=== PATIENT | male | born 1975 | race Caucasian/White ===

== ENCOUNTER → 2020-04-23 | Outpatient (CLI) | payer MEDICAID, SELFPAY ==
--- NOTE | 2020-04-23 08:53 | US_ITS ---
STUDY: ABDOMINAL ULTRASOUND REASON FOR EXAM: Male, 44 years old. Hepatitis C. TECHNIQUE: Transabdominal ultrasound was performed with real-time and static moreland scale imaging. TECHNICAL QUALITY: Adequate. COMPARISON: None. FINDINGS: Liver: The liver measures 16.3 cm. There is normal echogenicity of the liver. The bile ducts are within normal limits. There is hepatic color flow. The direction of portal flow is hepatopetal. There is no demonstrated mass lesion. Gallbladder: Normal distended gallbladder. The gallbladder wall measures 2.1 mm. There is a negative sonographic Rausch''s sign. There is no pericholecystic fluid. There are no gallstones. Common Bile Duct (C.B.D.): The common bile duct measures 6.7 mm. Pancreas: Normal size of the head, body and tail of the pancreas. There is normal echogenicity of the pancreas. There is no demonstrated pancreatic mass or cyst. Spleen: Borderline splenomegaly. No focal mass. The spleen measures 12.2 cm. Right Kidney: Normal size of the right kidney. The right kidney measures 11.5 cm. Normal renal cortex. The right cortex measures 1.8 cm. There is a 1.2 cm exophytic cyst in the medial mid cortex. There is no right hydronephrosis. Left Kidney: Normal size of the left kidney. The left kidney measures 11.5 cm. Normal renal cortex. The left cortex measures 1.3 cm. There is no demonstrated renal mass or cyst. There is no left hydronephrosis. Aorta: No abdominal aortic aneurysm. I.V.C.: The IVC is patent. There is no ascites. US/Abdomen Complete IMPRESSION: 1. Borderline splenomegaly. 2. No other sonographic evidence of abdominal abnormality Electronically Signed: Scotty Dhillon DO at 17:53 EDT Tel [phone], Service support ,
[2020-04-23 09:54] LABS: Amphetamine Urine VISTA NEGATIVE (<1000 ng/mL); Barbiturate Urine VISTA NEGATIVE (< 200 ng/mL); Benzodiazepine Urine VISTA NEGATIVE (< 200 ng/mL); Cocaine Urine VISTA NEGATIVE (< 300 ng/mL); Ecstacy Urine VISTA NEGATIVE (< 500 ng/mL); Methadone Urine VISTA NEGATIVE (< 300 ng/mL); PCP Urine VISTA NEGATIVE (< 25 ng/mL); THC Urine VISTA NEGATIVE (< 50 ng/mL); Vista UDS pH Range 5
[2020-04-23 09:59] LABS: Absolute Lymphocyte Count 1.29 X10^3/uL (0.83-4.51); Absolute Neutrophil Count 9.1 X10^3/uL (2.0-7.7); Basophil# 0.06 X10^3/uL; Basophil% 0.5 % (0-1); Eosinophil# 0.18 X10^3/uL; Eosinophils% 1.6 % (0-5); Hematocrit 41.1 % (40-54); Hemoglobin 14.2 g/dL (13.0-16.5); Lymphocyte # 1.29 X10^3/ul (4.0); Lymphocyte % 11.3 % (19-41); Mean Corp Hgb Conc 34.5 g/dL (32-36); Mean Corpuscular Hgb 33.2 pg (27.0-32.0); Mean Platelet Vol. 14.1 fl (6.2-12.0); Monocyte# 0.79 X10^3/uL; Monocyte% 6.9 % (0-10); NRBC Flagged by Analyzer 0 % (0-5); Neutrophil # 9.11 X10^3/uL (2.7-7.7); Neutrophil % 79.4 % (47-70); Platelet Count 120 K/mm3 (150-450); RBC Distribution Width CV 13.1 % (11.6-14.6); RBC Distribution Width SD 46.8 fl (35.1-43.9); Red Blood Count 4.28 M/mm3 (4.6-6.2); White Blood Count 11.5 K/mm3 (4.4-11.0)
[2020-04-23 10:02] LABS: Prothrombin Time (Protime)PT. 12.8 SECONDS (11.7-14.9)
[2020-04-23 10:07] LABS: ALB/GLOB Ratio 1.1 RATIO (0.9-2.4); AST(SGOT) 17 U/L (15-37); Alanine Aminotransfer ALT/SGPT 31 U/L (16-61); Albumin, Serum 3.9 g/dL (3.2-5.0); Alkaline Phosphatase 94 U/L (45-117); Anion Gap 8 (5-15); BUN 15 mg/dL (7-18); BUN/Creat Ratio 16.9 RATIO (10-20); Calcium,Total 8.6 mg/dL (8.5-10.1); Chloride 109 mmol/L (98-107); Creatinine, Serum 0.89 mg/dL (0.70-1.30); EST Glomerular Filtration Rate 99 mL/min (>60); Est Glom Filt Rate - Afr Amer 120 mL/min (>60); Globulin 3.5 g/dL (2.2-4.2); Glucose 136 mg/dL (74-106); Potassium 4.2 mmol/L (3.5-5.1); Protein, Total 7.4 g/dL (6.4-8.2); Sodium Level 140 mmol/L (136-145)
[2020-05-02 03:06] LABS: Comment 2b (.); HCV Quant. RNA PCR 2640000 IU/mL (.)
[2020-05-02 11:33] LABS: HCV log 10 6.422 (.)
== END | disposition home or self-care (01) ==
LOC: US 08:50
PROVIDERS: Referring Provider Internal Medicine Infectious Disease; Visit Provider Internal Medicine Infectious Disease
DX: B19.20 Unspecified viral hepatitis C without hepatic coma (principal)
CPT/HCPCS: 36415; 76700; 80053; 80307; 85025; 85610; 87522; 87902

== ENCOUNTER 2020-08-01 21:31 | Inpatient (IN) | payer MEDICAID, SELFPAY ==
[2020-08-01 21:33] VITALS: BP 134/35; PULSE 111; RESP 18; TEMP 36.2; O2SAT 97; BMI 19.5
--- NOTE | 2020-08-01 22:19 | ED.VIS.GEN ---
History of Present Illness Chief Complaint: Suicidal Narrative: Patient presents wanting detox. However, he was pink slipped here by police because he has been consuming lots of alcohol and stated that he wanted to drink until he did not wake up anymore. His brother apparently was concerned about him and called the police for a welfare check on him, and this was the result of that check. The patient states he is not suicidal, this was a misunderstanding, he is depressed, however cares a lot about his children and they are the only thing that is keeping him going, and he wants to stop drinking. His last drink was just prior to coming here. He typically drinks about 12 cans of 22 ounce 8% alcohol beverages per day. He has been drinking steadily for the last 10 days, and he did not drink before that because he was admitted to [facility] with alcoholic pancreatitis, which he has had several times in the past. He states he did go a month or 2 earlier in the year without drinking but relapsed, which she commonly does. He has not gone through formal detox recently. - Past Medical History (1) Alcoholism Status: Chronic Past Medical History - Allergies and Home Meds Allergies/Adverse Reactions: Allergies No Known Allergies Allergy (Verified 08/01/20 21:35) Primary Care Physician: Care Physician,No Primary [Primary Care Provider] - Lives: Alone Smoking Status: Current every day smoker Alcohol: Heavy Drugs: None Review of Systems General: Denies: Chills, Fever, Sweats Eyes: Denies: Visual changes - bilaterally, Diplopia ENT: Denies: Rhinorrhea, Sore throat Cardiovascular: Denies: Chest pain, Palpitations Respiratory: Reports: Cough. Denies: Dyspnea, Sputum, Dyspnea on exertion Gastrointestinal: Denies: Abdominal pain, Nausea, Vomiting, Diarrhea, Melena, Hematochezia Genitourinary: Denies: Dysuria, Hematuria, Frequency Musculoskeletal: Denies: Back pain, Extremity Pain Skin: Denies: Rash, Wounds Neurological: Denies: Headache, Weakness, Numbness Psych: Reports: Depression, Anxiety. Denies: Suicidal ideations Physical Exam Vital Signs/Narrative: Vital Signs Temp Pulse Resp BP Pulse Ox 08/01/20 21:33 97.2 F L 111 H 18 134/35 H 97 Inital Vital Signs reviewed: Yes General: Well nourished, Well developed, Unkempt, No Acute Distress Head: Normocephalic, Atraumatic Eyes: Perrl, EOMI ENT: Moist mucous membranes, No rhinorrhea Neck: Supple, Nontender Cardiovascular: Regular rate, Regular rhythm, No murmurs, Tachycardia - Mild Respiratory: No distress, CTA bilaterally, Chest nontender Abdomen: Soft, Nontender, Nondistended, Normal bowel sounds Back: Nontender, Normal Inspection Extremities: Nontender, No edema Skin: Normal color, No rash, No Trauma Neurological: Alert, Oriented x3, Cranial nerves II-XII grossly intact, Normal Strength, Normal Sensation, Normal Gait Psychological: - - Anxious, cooperative Diagnostic/Tx/Re-eval Impressions Chest X-Ray 08/01/20 22:30 IMPRESSION: No acute cardiopulmonary disease. Electronically Signed: Scotty Dhillon DO at 22:46 EDT Tel [phone], Service support , 08/01/20 22:30 Chest 1 View (Portable) [RAD] Stat Laboratory Results 08/01/20 08/01/20 08/01/20 21:50 21:55 21:55 WBC 8.9 RBC 5.02 Hgb 15.7 Hct 44.6 MCV 88.8 MCH 31.3 MCHC 35.2 RDW Std Deviation 39.5 RDW Coeff of Good 12.2 Plt Count 160 MPV 13.3 H Immature Gran % (Auto) 0.300 Neut % (Auto) 56.7 Lymph % (Auto) 33.7 [place] % (Auto) 6.8 Eos % (Auto) 1.9 Baso % (Auto) 0.6 Absolute Neuts (auto) 5.0 Absolute Lymphs (auto) 2.98 Nucleated RBC % 0 PT 13.5 INR 1.1 Sodium Potassium Chloride Carbon Dioxide Anion Gap BUN Creatinine Estim Creat Clear Calc Est GFR (MDRD) Af Amer Est GFR (MDRD) Non-Af BUN/Creatinine Ratio Glucose Calcium Total Bilirubin AST ALT Alkaline Phosphatase Total Protein Albumin Globulin Albumin/Globulin Ratio Urine Opiates Screen NEGATIVE Urine Methadone Screen NEGATIVE Ur Barbiturates Screen NEGATIVE Ur Phencyclidine Scrn NEGATIVE Ur Amphetamines Screen NEGATIVE U Methamphetamin-MDMA NEGATIVE U Benzodiazepines Scrn NEGATIVE Urine Cocaine Screen NEGATIVE U Cannabinoids Screen NEGATIVE Ur Drug Screen Comment Ethyl Alcohol Blood Type Antibody Screen 08/01/20 08/01/20 08/01/20 21:55 21:55 22:45 WBC RBC Hgb Hct MCV MCH MCHC RDW Std Deviation RDW Coeff of Good Plt Count MPV Immature Gran % (Auto) Neut % (Auto) Lymph % (Auto) [place] % (Auto) Eos % (Auto) Baso % (Auto) Absolute Neuts (auto) Absolute Lymphs (auto) Nucleated RBC % PT INR Sodium 143 Potassium 3.4 L Chloride 106 Carbon Dioxide 30.0 Anion Gap 7 BUN 10 Creatinine 0.78 Estim Creat Clear Calc 109.68 Est GFR (MDRD) Af Amer 140 Est GFR (MDRD) Non-Af 116 BUN/Creatinine Ratio 12.9 Glucose 117 H Calcium 8.7 Total Bilirubin 0.60 AST 41 H ALT 52 Alkaline Phosphatase 125 H Total Protein 7.7 Albumin 3.9 Globulin 3.8 Albumin/Globulin Ratio 1.0 Urine Opiates Screen Urine Methadone Screen Ur Barbiturates Screen Ur Phencyclidine Scrn Ur Amphetamines Screen U Methamphetamin-MDMA U Benzodiazepines Scrn Urine Cocaine Screen U Cannabinoids Screen Ur Drug Screen Comment Ethyl Alcohol 384.0 H* Blood Type AB NEGATIVE Antibody Screen NEGATIVE - Medical Decision Making Labs were done and are okay, his alcohol is in the 380s, his anxiety was treated, and I discussed with hospitalist to get him admitted for detox. Sitter was discontinued in the emergency department and the pink slipped was declined since he is not suicidal, and I do not think he needs emergent psychiatric evaluation at this time. ED Disposition - Plan for ED Patient: Disposition: Acute Care Hospital [facility] Diagnosis: Alcohol dependence Referrals: Care Physician,No Primary [Primary Care Provider] -
[2020-08-01] MEDS: LORazepam 1 MG Tablet 2 MG PO (22:28)
--- NOTE | 2020-08-01 22:30 | RAD_ITS ---
STUDY: X-RAY CHEST REASON FOR EXAM: Male, 44 years old. Detox from alcohol. Suicidal. TECHNIQUE: Single AP portable view of the chest. COMPARISON: None. FINDINGS: The lungs are hip are expanded. There is no focal mass or infiltrate. There is no pneumothorax. There is no demonstrated pleural abnormality. Normal size heart. Normal mediastinum and carmen. Normal visualized pulmonary arteries. Normal visualized aortic arch and descending thoracic aorta. Normal visualized thoracic spine. Normal visualized ribs, clavicles, and shoulders. There is no demonstrated abnormality of the visualized soft tissue structures of the upper abdomen. RAD/Chest 1 View (Portable) IMPRESSION: No acute cardiopulmonary disease. Electronically Signed: Scotty Dhillon DO at 22:46 EDT Tel [phone], Service support ,
[2020-08-01 22:33] VITALS: RESP 16
[2020-08-01 23:09] VITALS: BP 119/84; PULSE 94; RESP 16; O2SAT 98
[2020-08-01 23:20] LABS: Absolute Lymphocyte Count 2.98 X10^3/uL (0.83-4.51); Basophil# 0.05 X10^3/uL; Basophil% 0.6 % (0-1); Eosinophil# 0.17 X10^3/uL; Eosinophils% 1.9 % (0-5); Hematocrit 44.6 % (40-54); Hemoglobin 15.7 g/dL (13.0-16.5); Lymphocyte # 2.98 X10^3/ul (4.0); Lymphocyte % 33.7 % (19-41); Mean Corp Hgb Conc 35.2 g/dL (32-36); Mean Corpuscular Hgb 31.3 pg (27.0-32.0); Mean Corpuscular Volume 88.8 fL (80-94); Mean Platelet Vol. 13.3 fl (6.2-12.0); Monocyte% 6.8 % (0-10); NRBC Flagged by Analyzer 0 % (0-5); Neutrophil # 5.02 X10^3/uL (2.7-7.7); Neutrophil % 56.7 % (47-70); Platelet Count 160 K/mm3 (150-450); RBC Distribution Width CV 12.2 % (11.6-14.6); RBC Distribution Width SD 39.5 fl (35.1-43.9); Red Blood Count 5.02 M/mm3 (4.6-6.2); White Blood Count 8.9 K/mm3 (4.4-11.0)
[2020-08-01 23:39] LABS: International Normalized Ratio 1.1; Prothrombin Time (Protime)PT. 13.5 SECONDS (11.7-14.9)
[2020-08-01 23:40] LABS: AST(SGOT) 41 U/L (15-37); Alanine Aminotransfer ALT/SGPT 52 U/L (16-61); Albumin, Serum 3.9 g/dL (3.2-5.0); Alkaline Phosphatase 125 U/L (45-117); Anion Gap 7 (5-15); BUN 10 mg/dL (7-18); BUN/Creat Ratio 12.9 RATIO (10-20); Calcium,Total 8.7 mg/dL (8.5-10.1); Chloride 106 mmol/L (98-107); Creatinine, Serum 0.78 mg/dL (0.70-1.30); EST Glomerular Filtration Rate 116 mL/min (>60); Est Glom Filt Rate - Afr Amer 140 mL/min (>60); Estimated Creatinine Clearance 109.68 ml/min; Globulin 3.8 g/dL (2.2-4.2); Glucose 117 mg/dL (74-106); Potassium 3.4 mmol/L (3.5-5.1); Protein, Total 7.7 g/dL (6.4-8.2); Sodium Level 143 mmol/L (136-145)
[2020-08-02] VITALS (8 sets, daily range): BP systolic 128–144; BP diastolic 68–104; PULSE 77–111; RESP 16–18; TEMP 36.6–36.9; O2SAT 95–98; BMI 16.6
--- NOTE | 2020-08-02 00:06 | HP.PCM_ITS ---
Problem List (1) Alcoholism Status: Chronic (2) Alcohol dependence Status: Acute History of Present Illness Date of Admission: 08/02/20 Chief Complaint: desire to detoxification The patient is a 44 year old M with a significant history of alcohol dependence and abuse; and tobacco abuse who presents to the emergency department for detoxification. Reportedly he drinks about 12 bottles of 22 ounces of 'Abram's hard lemonade. About a year ago he was at [place] for detoxification. Last time he drank was on the same evening of presentation. Reportedly he was pink slipped because of his statement that he would drink to kill himself. He denies any suicidal ideation. Initially he had a sitter at emergency department but it was eventually discontinued. He reported that he feel depressed. He attributes his depression to drinking. Past Medical History Past Medical History (Chronic Problems): Chronic Problems Alcoholism (Chronic) Allergies No Known Allergies Allergy (Verified 08/01/20 21:35) Home Medications: Ambulatory Orders Medication Instructions Recorded NK 08/02/20 Surgical History: herniorrhaphy Lives: Alone Smoking Status: Current every day smoker Tobacco Use: Cigarettes Alcohol: Heavy Drugs: None - *Family History Maternal History Items: - - Denies knowledge of maternal medical history. Paternal History Items: - - Alcoholism Review of Systems Constitutional: Denies: Chills, Fever, Weight Change HEENT: Denies: Head Aches, Sinus Congestion, Sinus Drainage Cardiovascular: Denies: Chest Pain, Palpitations Respiratory: Denies: Cough, Shortness of breath at rest, Sputum production Gastrointestinal: Denies: Abdominal Pain, Nausea, Vomiting Genitourinary: Denies: Dysuria Musculoskeletal: Denies: Joint Pain, Joint Tenderness Skin: Denies: Rash, Wounds Neurological: Denies: Numbness, Tingling, Focal weakness Psychiatric: Denies: Anxiety, Depression, Homicidal Ideations, Suicidal Ideations Hematologic/ Lymphatic: Denies: Easy Bruising, Easy Bleeding VTE Information - Inpt Only VTE Present on Admission: No VTE Mechan Device Prophylaxis: None VTE Pharm Prophylaxis ordered?: No Reason prophylaxis not ordered:: Treatment Not Indicated - Low risk; encourage ambulate. Patient Problems: Active and Suspected Problems Alcohol dependence (Acute) - Physical Exam Vitals/I&O's: Vital Signs Temp Pulse Resp BP Pulse Ox 97.2 F L 94 16 119/84 H 98 08/01/20 21:33 08/01/20 23:09 08/01/20 23:09 08/01/20 23:09 08/01/20 23:09 Oxygen Delivery Method Room Air Weight: 63.503 kg Body Mass Index (BMI) 19.5 General: Alert, Oriented x3, Cooperative HEENT: Atraumatic, PERRLA, EOMI, Normocephalic Neck: Supple, No JVD, Negative Carotid Bruits Lungs: Clear to auscultation, Normal air movement Cardiovascular: Regular rate, Normal S1, Normal S2, No murmurs Abdomen: Bowel Sounds Present, Soft, Non Tender Extremities: No edema, Capillary Refill Less than 3 Seconds Skin: No rashes, No breakdown Musculoskeletal: No Tenderness to Palpation of Joints or Extremities Neurological: Cranial nerves II-XII grossly intact Psych/Mental Status: Normal Affect, Appropriate Laboratory Results 08/01/20 21:50: Urine Opiates Screen Pending, Urine Methadone Screen Pending, Ur Barbiturates Screen Pending, Ur Phencyclidine Scrn Pending, Ur Amphetamines Screen Pending, U Methamphetamin-MDMA Pending, U Benzodiazepines Scrn Pending, Urine Cocaine Screen Pending, U Cannabinoids Screen Pending, Ur Drug Screen Comment 08/01/20 21:55: WBC 8.9, RBC 5.02, Hgb 15.7, Hct 44.6, MCV 88.8, MCH 31.3, MCHC 35.2, RDW Std Deviation 39.5, RDW Coeff of Good 12.2, Plt Count 160, MPV 13.3 H, Immature Gran % (Auto) 0.300, Neut % (Auto) 56.7, Lymph % (Auto) 33.7, [place] % (Auto) 6.8, Eos % (Auto) 1.9, Baso % (Auto) 0.6, Absolute Neuts (auto) 5.0, Absolute Lymphs (auto) 2.98, Nucleated RBC % 0 08/01/20 21:55: PT 13.5, INR 1.1 08/01/20 21:55: Sodium 143, Potassium 3.4 L, Chloride 106, Carbon Dioxide 30.0, Anion Gap 7, BUN 10, Creatinine 0.78, Estim Creat Clear Calc 109.68, Est GFR (MDRD) Af Amer 140, Est GFR (MDRD) Non-Af 116, BUN/Creatinine Ratio 12.9, Glucose 117 H, Calcium 8.7, Total Bilirubin 0.60, AST 41 H, ALT 52, Alkaline Phosphatase 125 H, Total Protein 7.7, Albumin 3.9, Globulin 3.8, Albumin/Globulin Ratio 1.0 08/01/20 21:55: Ethyl Alcohol Pending 08/01/20 22:45: Blood Type Pending, Antibody Screen Pending Assessment/Plan All Active Problems Alcohol dependence (Acute) Alcohol dependence. Placed on phenobarbital protocols and adjunctive medications. Thiamine and folic acid ordered. Counselled Tobacco abuse Counselled Nicotine patch prescribed. DVT prophylaxis Low risk encourage ambulate. Inpatient E&M: 38519 Init Hosp L2
[2020-08-02 00:19] LABS: Amphetamine Urine VISTA NEGATIVE (<1000 ng/mL); Barbiturate Urine VISTA NEGATIVE (< 200 ng/mL); Benzodiazepine Urine VISTA NEGATIVE (< 200 ng/mL); Cocaine Urine VISTA NEGATIVE (< 300 ng/mL); Ecstacy Urine VISTA NEGATIVE (< 500 ng/mL); Methadone Urine VISTA NEGATIVE (< 300 ng/mL); PCP Urine VISTA NEGATIVE (< 25 ng/mL); THC Urine VISTA NEGATIVE (< 50 ng/mL); Vista UDS pH Range 7
[2020-08-02] MEDS: Phenobarbital 32.4 MG Tablet 64.8 MG PO ×6 (01:53→21:42)
[2020-08-02] MEDS: Ondansetron 8 MG Tablet PO (01:53)
[2020-08-02] MEDS: traZODone 100 MG Tablet PO ×2 (01:53→21:42)
--- NOTE | 2020-08-02 07:47 | PCM.PN.BLA ---
Progress Note 4-year-old male with past medical history of alcohol dependence who was admitted for medical stabilization for acute alcohol withdrawal. Patient seen and examined. No acute events overnight. Vitals have been stable. Repeat blood work shows resolved hypokalemia Measurements 1.7, will replace Recheck blood work in a.m. Continue on the phenobarbital withdrawal protocol. STROKE Vital Signs/Narrative: Vital Signs Temp Pulse Resp BP Pulse Ox 08/02/20 05:07 98.4 F 111 H 18 128/94 H 96
[2020-08-02 08:04] LABS: Anion Gap 6 (5-15); BUN 16 mg/dL (7-18); BUN/Creat Ratio 25.3 RATIO (10-20); Chloride 106 mmol/L (98-107); Creatinine, Serum 0.63 mg/dL (0.70-1.30); EST Glomerular Filtration Rate 147 mL/min (>60); Est Glom Filt Rate - Afr Amer 178 mL/min (>60); Glucose 93 mg/dL (74-106); Magnesium 1.7 mg/dL (1.6-2.6); Sodium Level 142 mmol/L (136-145)
--- NOTE | 2020-08-02 08:13 | ADDICTION ---
This bond underwriter attempted to meet with patient in his room to complete required assessments and d/c planning. Patient roused to verbal queing, however, was unable to maintain consciousness during this attempt. He stated that he is very tired. This bond underwriter will attempt to meet with patient tomorrow- 08/03/2020- to complete documentation.
[2020-08-02] MEDS: Thiamine Hydrochloride 100 MG Tablet PO (08:56)
[2020-08-02] MEDS: Folic Acid 1 MG Tablet PO (08:56)
--- NOTE | 2020-08-02 15:11 | PCM.NTREPORT ---
Nutrition Therapy Report - History Nutrition Services has been consulted to:: Manage nutrient details of diet order Current diet / nutrition support order:: Regular diet with 120 ml ensure enlive 4 times per day w/ medpass - Anthropometric Measurements Height:: 6 ft Weight:: 55.6 kg Body Mass Index (BMI):: 16.6 - Relevant Labs Relevant Labs:: MPV 13.3 fl (6.2-12.0) H 08/01/20 21:55 Potassium 3.4 mmol/L (3.5-5.1) L 08/01/20 21:55 Creatinine 0.63 mg/dL (0.70-1.30) L 08/02/20 07:15 BUN/Creatinine Ratio 25.3 RATIO (10-20) H 08/02/20 07:15 Glucose 117 mg/dL (74-106) H 08/01/20 21:55 Calcium 8.0 mg/dL (8.5-10.1) L 08/02/20 07:15 AST 41 U/L (15-37) H 08/01/20 21:55 Alkaline Phosphatase 125 U/L (45-117) H 08/01/20 21:55 - Assessment Food / Nutrition-Related History:: Pt reports UBW~150 lbs so, calculated ~18% wt loss over reported time~2-3 months per pt. 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 Pt appears to have visible moderate to severe muscle/fat wasting in the face and upper body as well. PO being established at meals and pt accepting of ensure enlive w/ medpass. 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 Evidence of Malnutrition Exists:: Yes Severe PCM:: Social & Environmental circumstances - Nutrition Intervention Nutrition Prescription:: Estimated nutrition needs for repletion~0510-7894 and ~70-80 gm protein/day. - Food / Nutrient Delivery Interventions Summary of nutrition intervention:: Encourage intake of meals and ONS as ordered w/ medpass and w/ meals. Will adjust ONS as needed to optimize intake and replete energy/protein. Nutrition support ordered as / adjusted to:: no nutrition support ordered Nutrition education provided?: Yes - MNT Monitoring Further MNT monitoring and evaluation required?: Yes MNT Follow-up in:: 3-5 days
[2020-08-02] MEDS: Acetaminophen 325 MG Tablet 650 MG PO (15:13)
[2020-08-02] MEDS: Gabapentin 300 MG Capsule PO (15:14)
[2020-08-02] MEDS: hydrOXYzine PAM 25 MG Capsule 50 MG PO (15:14)
--- NOTE | 2020-08-02 20:10 | NURSING ---
Pt's father Gautam Kaur called the floor and said that the police assured him his son was here and someone else also told him pt was here. I went and talked to Ramsey Kaur and he said it was ok to let his dad know. Pt further stated that his dad is the one who called the healthcare administration intern to do a wellness check on him. I therefore called Gautam Kaur back at [phone] and advised him that his son is not on the directory but that he was ok. Further notified that he cannot make or receive calls and that I could not give out information. Gautam was appreciative of the call.
[2020-08-03] MEDS: Phenobarbital 32.4 MG Tablet 64.8 MG PO ×6 (01:42→21:08)
[2020-08-03 02:45] VITALS: BP 128/92; PULSE 93; RESP 18; TEMP 36.6; O2SAT 97
[2020-08-03 06:35] LABS: AST(SGOT) 40 U/L (15-37); Alanine Aminotransfer ALT/SGPT 44 U/L (16-61); Albumin, Serum 3.1 g/dL (3.2-5.0); Alkaline Phosphatase 106 U/L (45-117); Anion Gap 4 (5-15); BUN 20 mg/dL (7-18); BUN/Creat Ratio 25.9 RATIO (10-20); Calcium,Total 8.3 mg/dL (8.5-10.1); Chloride 104 mmol/L (98-107); Creatinine, Serum 0.77 mg/dL (0.70-1.30); EST Glomerular Filtration Rate 117 mL/min (>60); Est Glom Filt Rate - Afr Amer 141 mL/min (>60); Estimated Creatinine Clearance 97.28 ml/min; Glucose 118 mg/dL (74-106); Potassium 3.1 mmol/L (3.5-5.1); Protein, Total 6.1 g/dL (6.4-8.2); Sodium Level 136 mmol/L (136-145)
[2020-08-03 08:00] VITALS: BP 132/91; PULSE 93; RESP 18; TEMP 37.2; O2SAT 98
[2020-08-03] MEDS: Folic Acid 1 MG Tablet PO (08:04)
[2020-08-03] MEDS: Thiamine Hydrochloride 100 MG Tablet PO (08:04)
--- NOTE | 2020-08-03 08:04 | PN_ITS ---
Patient Problems: Active and Suspected Problems Alcohol dependence (Acute) Reason for Visit: Follow-up on acute alcohol withdrawal Subjective: Patient was seen and examined. He complains or restlessness. No acute events. Objective: Physical exam: Vitals/I&O's: Vital Signs Temp Pulse Resp BP Pulse Ox 98.9 F 93 18 132/91 H 97 08/03/20 08:00 08/03/20 08:00 08/03/20 08:00 08/03/20 08:00 08/03/20 02:45 Oxygen Delivery Method Room Air Weight: 55.6 kg Body Mass Index (BMI) 16.6 Intake and Output for Last 24 Hours 08/01/20 08/02/20 08/03/20 23:59 23:59 23:59 Intake Total 1604 / 1604 700 / 700 Balance 1604 / 1604 700 / 700 General: Alert, Oriented x3, Cooperative, No apparent distress HEENT: Atraumatic, PERRLA, EOMI, Normocephalic Oral: Moist Mucosa Neck: Supple Lungs: Clear to auscultation, Normal air movement Cardiovascular: Regular rate, Regular Rhythm, Normal S1, Normal S2, No murmurs Abdomen: Bowel Sounds Present, Soft, Non Tender, Non-Distended, Obese Extremities: No edema Skin: No rashes Musculoskeletal: No Tenderness to Palpation of Joints or Extremities Lymphatic: No Cervical, Supraclavicular, or Inguinal Adenopathy Neurological: Cranial nerves II-XII grossly intact, Neuro grossly intact Psych/Mental Status: Normal Affect, Appropriate Laboratory Results 08/02/20 07:15: Sodium 142, Potassium 4.0, Chloride 106, Carbon Dioxide 30.0, Anion Gap 6, BUN 16, Creatinine 0.63 L, Estim Creat Clear Calc 118.90, Est GFR (MDRD) Af Amer 178, Est GFR (MDRD) Non-Af 147, BUN/Creatinine Ratio 25.3 H, Glucose 93, Calcium 8.0 L 08/02/20 07:15: Magnesium 1.7 08/03/20 05:40: Sodium 136, Potassium 3.1 L, Chloride 104, Carbon Dioxide 28.0, Anion Gap 4 L, BUN 20 H, Creatinine 0.77, Estim Creat Clear Calc 97.28, Est GFR (MDRD) Af Amer 141, Est GFR (MDRD) Non-Af 117, BUN/Creatinine Ratio 25.9 H, Glucose 118 H, Calcium 8.3 L, Magnesium 2.0, Total Bilirubin 1.30 H, AST 40 H, ALT 44, Alkaline Phosphatase 106, Total Protein 6.1 L, Albumin 3.1 L, Globulin 3.0, Albumin/Globulin Ratio 1.0 Current Medications Acetaminophen (Acetaminophen 325 Mg Tablet) 650 mg PO Q6H PRN PRN PRN Reason: Pain Score 1-10/Temp > 100.7 F Last Admin: 08/02/20 15:13 Dose: 650 mg Documented by: Dicyclomine HCl (Dicyclomine 10 Mg Capsule) 20 mg PO Q6H PRN PRN PRN Reason: abdominal discomfort Folic Acid (Folic Acid 1 Mg Tablet) 1 mg PO DAILY@0800 [facility] Last Admin: 08/03/20 08:04 Dose: 1 mg Documented by: Gabapentin (Gabapentin 300 Mg Capsule) 300 mg PO Q8H PRN PRN PRN Reason: moderate to severe anxiety Last Admin: 08/02/20 15:14 Dose: 300 mg Documented by: Hydroxyzine Pamoate (Hydroxyzine Chanel 25 Mg Capsule) 50 mg PO Q4H PRN PRN PRN Reason: mild anxiety Last Admin: 08/02/20 15:14 Dose: 50 mg Documented by: Loperamide HCl (Loperamide 2 Mg Capsule) 2 mg PO Q4H PRN PRN PRN Reason: LOOSE STOOLS Nicotine (Nicotine 21 Mg Patch) 21 mg TRANSDERM. DAILY [facility] Last Admin: 08/02/20 08:55 Dose: 21 mg Documented by: Nutritional Formula (Lactose Free) (Ensure Enlive 120 Ml Liquid) 120 ml PO 4X/DAY [facility] Last Admin: 08/02/20 21:42 Dose: 120 ml Documented by: Ondansetron HCl (Ondansetron 8 Mg Tablet) 8 mg PO Q8H PRN PRN PRN Reason: NAUSEA Last Admin: 08/02/20 01:53 Dose: 8 mg Documented by: Phenobarbital (Phenobarbital 32.4 Mg Tablet) 97.2 mg PO Q4H [facility]; Taper Stop: 08/06/20 09:29 Last Admin: 08/03/20 05:29 Dose: 97.2 mg Documented by: Potassium Chloride (Potassium Chloride 20 Meq Tablet) 60 meq PO X1 ONE Stop: 08/03/20 08:04 Sodium Chloride (0.9% Saline Lock 10 Ml Syringe) 10 - 40 ml IV UD PRN PRN Reason: SALINE FLUSH Thiamine HCl (Thiamine Hydrochloride 100 Mg Tablet) 100 mg PO DAILYCM SOWMYA Last Admin: 08/03/20 08:04 Dose: 100 mg Documented by: Trazodone HCl (Trazodone 100 Mg Tablet) 100 mg PO QHS PRN PRN PRN Reason: INSOMNIA Last Admin: 08/02/20 21:42 Dose: 100 mg Documented by: STROKE Vital Signs/Narrative: Vital Signs Temp Pulse Resp BP 08/03/20 08:00 98.9 F 93 18 132/91 H Medical Necessity - Tobacco Use Smoking Status: Current every day smoker Tobacco Use: Cigarettes Assessment/Plan All Active Problems Alcohol dependence (Acute) 1. Acute alcohol withdrawal in a patient with chronic alcohol use disorder, slowly improving Patient continues to require medication and monitoring for withdrawal based on regular assessment and remains appropriate for ASAM level 4.0 Continue on the phenobarbital withdrawal protocol. 2. Hypokalemia, secondary to #1, replaced, recheck in am 3. Hypomagnesemia, resolved 4. Nicotine dependence, on replacement 5. DVT prophylaxis with early ambulation Inpatient E&M: 44247 Subs Hosp L2
[2020-08-03] MEDS: Gabapentin 300 MG Capsule PO ×2 (09:43→21:08)
--- NOTE | 2020-08-03 09:58 | ADDICTION ---
This medical writer met with patient in his room to complete AUDIT, MSE and ASAM assessments and to plan for discharge. He presented with depressed mood and flat affect and reported that he is not feeling well. This medical writer informed patient's nurse of his report. Ramsey participated passively but appropriately and is scheduled for assessment with this medical writer at [facility] on 08/11/2020 at 12 pm. He is amiable to this appointment and is not interested in groups or residential treatment at this time. He did not report a need for transportation upon discharge from [facility].
[2020-08-03] MEDS: Pramipexole Di-HCl 0.5 MG Tablet PO ×3 (10:00→23:48)
--- NOTE | 2020-08-03 10:13 | NURSING ---
ATTEMPTED TO RETURN CALL TO SISTER CASEY FOR UPDATED W/ PATIENT'S PERMISSION, NO ANSWER.
[2020-08-03] MEDS: hydrOXYzine PAM 25 MG Capsule 50 MG PO ×2 (12:52→23:48)
[2020-08-03] MEDS: Acetaminophen 325 MG Tablet 650 MG PO ×2 (12:52→21:08)
[2020-08-03 13:53] VITALS: BP 150/95; PULSE 88; RESP 18; TEMP 37; O2SAT 99
[2020-08-03 17:24] VITALS: BP 136/96; PULSE 90; RESP 18; TEMP 36.8; O2SAT 98
[2020-08-03] MEDS: Loperamide 2 MG Capsule PO (17:28)
[2020-08-03 20:53] VITALS: BP 143/87; PULSE 85; RESP 18; TEMP 37.1; O2SAT 100
[2020-08-03] MEDS: traZODone 100 MG Tablet PO (21:08)
[2020-08-04 02:02] VITALS: BP 134/94; PULSE 86; RESP 18; TEMP 36.6; O2SAT 100
[2020-08-04] MEDS: Phenobarbital 32.4 MG Tablet 64.8 MG PO ×2 (02:06→05:39)
--- NOTE | 2020-08-04 05:27 | NURSING ---
Pt is sitting in visitors waiting area refusing his medications and acting confused. I have explained to him the benefits of his medication regimen to help him detox safely. Pt believes he is hearing voices in his room. I will continue to reorient patient and try and get him to take his medications.
[2020-08-04] MEDS: Gabapentin 300 MG Capsule PO (05:39)
--- NOTE | 2020-08-04 08:00 | NURSING ---
Addendum entered by Cristina Guevara 08/04/20 08:16: pt verbalized frustration that he thought he would be having therapy session and that he was only going to be here a couple day. Explained to patient medical stabilization, alcohol withdrawl and then follow up plans patient had set up with Gertrude from [facility]. Pt verbalized frustration that he had been hallucinating last night but his request to change room was denied stating the unit was full. education was given about alcohol withdrawl, signs and symptoms, and the medications he was given and reasons for them. Pt continued with restlessness, and agitation. Pt requested to call brother stating frustated he hasn't been able to talk to any family. Patient agree able to walk back to room to look at meds and have further conversation. This nurse attempted to assist patient with calling his brother using staff phone but pt unable to get phone number to work. Pt refused to have this nurse call his sister listed as contact center team lead, and also denied offers to call his father. [phone] Dr. Navarrete also sent a text message updated on pt including patient requesting discharge or states will leave AMA. Dr. Navarrete called this nurse and updated on pt's condition and then talked with patient on the phone. Aware per Dr. Navarrete she will discharge patient. Pt continued to be agitated and restless walking into hallway, pacing, and looking for his cigarettes. Pt agreeable to wait for this nurse to get DC paperwork but not agreeable for vital signs to be checked or any other nursing care to be done. Discharge instructions reviewed with patient including DC discharge plan from [facility]. Pt given paperwork in purple folder. Belongings obtained from locked bin and given to patient. Pt changed into his own hoodie. Pt had wallet, insurance card, additional clothes and cell phone from [employer]. Patient escorted to elevator and states he will call his family member or insurance company to get him a ride using his cellphone. patient left unit at 0811 Primary RN amalia informed of above Security notified of discharge. Original Note: pt found in family waiting room. pt anxious restless states wants to talk to physician and be discharged or leave AMA. medical stabilization explained to patient .
--- NOTE | 2020-08-04 08:01 | DCINST_ITS ---
- Discharge Diagnoses Current Active Problems: Current Active and Chronic Problems Alcoholism (Chronic) Alcohol dependence (Acute) Reason(s) for Visit for Discharge Instructions: Acute alcohol withdrawal You will use the following diet at home:: Regular Your food should be the consistency of: Regular Your liquids should be the consistency of: Regular/Thin Discharge Activity: Return to Normal Activity Additional Instructions: You are strongly advised to avoid alcohol or use of any illicit drug. Avoid smoking. Follow-up with your outpatient rehab program as scheduled. Allergies/Adverse Reactions: Allergies No Known Allergies Allergy (Verified 08/01/20 21:35) Medications to take at Discharge NK 08/02/20 Primary Care Physician: Care Physician,No Primary [Primary Care Provider] - Please follow up with your Primary Care Physician in: within 2 weeks Test Results: Test results from this visit will be discussed in further detail at your follow- up appointment, if applicable. Proposed Discharge Date: 08/04/20
--- NOTE | 2020-08-04 08:02 | DS.PCM_ITS ---
Discharge Date and Diagnosis - Problem List Patient Problems: Active and Suspected Problems Alcohol dependence (Acute) Date of Admission: 08/02/20 Date of Discharge: 08/04/20 - Primary Discharge Diagnosis Acute Problems: Active Problems Alcohol dependence (Acute) Acute alcohol withdrawal - Secondary Discharge Diagnosis Chronic Problems: Chronic Problems Alcoholism (Chronic) Hospital Course and Treatment Imaging Results: Clinical Impression(s) from Imaging Studies Chest X-Ray 08/01/20 22:30 IMPRESSION: No acute cardiopulmonary disease. Electronically Signed: Scotty Dhillon DO at 22:46 EDT Tel [phone], Service support , Operations: None Procedures: None Summary of Care Provided: The patient is a 44 year old M with past medical history of alcohol dependence/use disorder who comes in requesting medical stabilization. Patient admits to drinking 12 bottles of 22 ounces of hard liquor. He last drank on the day of presentation. He admitted to some tremors and restlessness. Vitals were stable in the ED. his potassium was 3.4 but BMP otherwise stable. Urine tox was negative. Admitting alcohol level was 384. Patient was admitted to the [facility] floor managed on alcohol withdrawal protocol with phenobarbital. He had replacement of his potassium. He continued to improve. The day of discharge, patient stated that he wanted to be discharged and did not feel like he needed to stay. He felt which is giving him medications. He was reminded of his contract prior to admission. He was not interested in staying any longer and following up with outpatient. Patient Problems: Active and Suspected Problems Alcohol dependence (Acute) Subjective: On the day of discharge, patient was seen and examined. No acute events overnight. Objective: Physical exam: General: Alert, Oriented x3, Cooperative, No apparent distress HEENT: Atraumatic, PERRLA, EOMI, Normocephalic Oral: Moist Mucosa Neck: Supple Lungs: Clear to auscultation, Normal air movement Cardiovascular: Regular rate, Regular Rhythm, Normal S1, Normal S2, No murmurs Abdomen: Bowel Sounds Present, Soft, Non Tender, Non-Distended, Obese Extremities: No edema Skin: No rashes Musculoskeletal: No Tenderness to Palpation of Joints or Extremities Lymphatic: No Cervical, Supraclavicular, or Inguinal Adenopathy Neurological: Cranial nerves II-XII grossly intact, Neuro grossly intact Psych/Mental Status: Normal Affect, Appropriate - Physical Exam Vitals/I&O's: Vital Signs Temp Pulse Resp BP Pulse Ox 97.8 F 86 18 134/94 H 100 08/04/20 02:02 08/04/20 02:02 08/04/20 02:02 08/04/20 02:02 08/04/20 02:02 Oxygen Delivery Method Room Air Weight: 55.6 kg Body Mass Index (BMI) 16.6 Intake and Output for Last 24 Hours 08/02/20 08/03/20 08/04/20 23:59 23:59 23:59 Intake Total 1604 / 1604 1540 / 1540 1100 / 1100 Balance 1604 / 1604 1540 / 1540 1100 / 1100 Current Medications Acetaminophen (Acetaminophen 325 Mg Tablet) 650 mg PO Q6H PRN PRN PRN Reason: Pain Score 1-10/Temp > 100.7 F Last Admin: 08/03/20 21:08 Dose: 650 mg Documented by: Dicyclomine HCl (Dicyclomine 10 Mg Capsule) 20 mg PO Q6H PRN PRN PRN Reason: abdominal discomfort Folic Acid (Folic Acid 1 Mg Tablet) 1 mg PO DAILY@0800 [facility] Last Admin: 08/03/20 08:04 Dose: 1 mg Documented by: Gabapentin (Gabapentin 300 Mg Capsule) 300 mg PO Q8H PRN PRN PRN Reason: moderate to severe anxiety Last Admin: 08/04/20 05:39 Dose: 300 mg Documented by: Hydroxyzine Pamoate (Hydroxyzine Chanel 25 Mg Capsule) 50 mg PO Q4H PRN PRN PRN Reason: mild anxiety Last Admin: 08/03/20 23:48 Dose: 50 mg Documented by: Loperamide HCl (Loperamide 2 Mg Capsule) 2 mg PO Q4H PRN PRN PRN Reason: LOOSE STOOLS Last Admin: 08/03/20 17:28 Dose: 2 mg Documented by: Nicotine (Nicotine 21 Mg Patch) 21 mg TRANSDERM. DAILY [facility] Last Admin: 08/03/20 09:34 Dose: Not Given Documented by: Nicotine Polacrilex (Nicotine Polacrilex 4 Mg Gum) 4 mg PO Q2H PRN PRN PRN Reason: Nicotine Craving Nutritional Formula (Lactose Free) (Ensure Enlive 120 Ml Liquid) 120 ml PO 4X/DAY [facility] Last Admin: 08/03/20 21:08 Dose: 120 ml Documented by: Ondansetron HCl (Ondansetron 8 Mg Tablet) 8 mg PO Q8H PRN PRN PRN Reason: NAUSEA Last Admin: 08/02/20 01:53 Dose: 8 mg Documented by: Phenobarbital (Phenobarbital 32.4 Mg Tablet) 64.8 mg PO Q4H [facility]; Taper Stop: 08/06/20 09:29 Last Admin: 08/04/20 05:39 Dose: 64.8 mg Documented by: Pramipexole Dihydrochloride (Pramipexole Di-Hcl 0.5 Mg Tablet) 0.5 mg PO TID PRN PRN Reason: RESTLESSNESS Last Admin: 08/03/20 23:48 Dose: 0.5 mg Documented by: Sodium Chloride (0.9% Saline Lock 10 Ml Syringe) 10 - 40 ml IV UD PRN PRN Reason: SALINE FLUSH Thiamine HCl (Thiamine Hydrochloride 100 Mg Tablet) 100 mg PO DAILYCM [facility] Last Admin: 08/03/20 08:04 Dose: 100 mg Documented by: Trazodone HCl (Trazodone 100 Mg Tablet) 100 mg PO QHS PRN PRN PRN Reason: INSOMNIA Last Admin: 08/03/20 21:08 Dose: 100 mg Documented by: Discharge Diet: No Restrictions Discharge Activity: Return to Normal Activity Home Medications: Medications to take at Discharge NK 08/02/20 Primary Care Physician: Care Physician,No Primary [Primary Care Provider] - Please follow up with your Primary Care Physician in: within 2 weeks Disposition: Home Minutes spent on discharge:: 25 Patient Condition:: Stable Medical Necessity - Tobacco Use Smoking Status: Current every day smoker Tobacco Use: Cigarettes Meaningful Use Info Meaningful Use Diagnoses (Choose all that apply): None applicable Inpatient E&M: 06602 Disch Hosp
== END 2020-08-04 08:11 | disposition home or self-care (01) | DRG 775 ==
LOC: ED 23:53 → MS3 08-02 00:35
PROVIDERS: Admitting Provider Hospitalist; Emergency Provider Emergency Medicine; Visit Provider Internal Medicine
DX: F10.239 Alcohol dependence with withdrawal, unspecified (principal); Y90.8 Blood alcohol level of 240 mg/100 ml or more; F17.210 Nicotine dependence, cigarettes, uncomplicated; E87.6 Hypokalemia; E83.42 Hypomagnesemia
CPT/HCPCS: 71045; 80048; 80053; 80307; 80320; 83735; 85025; 85610; 86850; 86900; 86901; 97162; 97166; 97802; 99283; A4216; G0480

== ENCOUNTER → 2020-12-31 09:27 | Outpatient (CLI) | payer MEDICAID, SELFPAY ==
[2020-08-02 15:15] VITALS: BMI 16.6
[2021-01-02 08:59] LABS: Hepatitis B Surface Antibody Reactive; Hepatitis B Surface Antigen Non-Reactive (Nonreactive)
[2021-01-02 09:07] LABS: Hepatitis C Antibody REACTIVE (Nonreactive)
== END ==
PROVIDERS: Referring Provider Internal Medicine Infectious Disease; Visit Provider Internal Medicine Infectious Disease
DX: B19.20 Unspecified viral hepatitis C without hepatic coma (principal)
CPT/HCPCS: 36415; 86706; 86803; 87340

== ENCOUNTER 2022-02-25 00:27 | Emergency (ER) | payer MEDICAID, SELFPAY ==
[2022-02-25] VITALS (12 sets, daily range): BP systolic 119–146; BP diastolic 86–103; PULSE 81–112; RESP 15–18; TEMP 36.4; O2SAT 96–99; BMI 36.3
--- NOTE | 2022-02-25 00:56 | ED.RN ---
We will not have a sitter for this patient due to no specific plan
[2022-02-25] MEDS: hydrOXYzine PAM 25 MG Capsule 75 MG PO (01:42)
[2022-02-25 01:45] LABS: Amphetamine Urine VISTA NEGATIVE (<1000 ng/mL); Barbiturate Urine VISTA NEGATIVE (< 200 ng/mL); Benzodiazepine Urine VISTA NEGATIVE (< 200 ng/mL); Cocaine Urine VISTA NEGATIVE (< 300 ng/mL); Ecstacy Urine VISTA NEGATIVE (< 500 ng/mL); Methadone Urine VISTA NEGATIVE (< 300 ng/mL); PCP Urine VISTA NEGATIVE (< 25 ng/mL); THC Urine VISTA NEGATIVE (< 50 ng/mL); Vista UDS pH Range 7
[2022-02-25 01:48] LABS: Absolute Lymphocyte Count 2.27 X10^3/uL (0.83-4.51); Absolute Neutrophil Count 3.2 X10^3/uL (2.0-7.7); Basophil# 0.05 X10^3/uL; Basophil% 0.8 % (0-1); Eosinophil# 0.12 X10^3/uL; Eosinophils% 1.9 % (0-5); Hematocrit 40.6 % (40-54); Hemoglobin 14.1 g/dL (13.0-16.5); Lymphocyte # 2.27 X10^3/ul (0.83-4.51); Lymphocyte % 36.8 % (19-41); Mean Corp Hgb Conc 34.7 g/dL (32-36); Mean Corpuscular Hgb 31.3 pg (27.0-32.0); Mean Platelet Vol. 12.3 fl (6.2-12.0); Monocyte# 0.48 X10^3/uL; Monocyte% 7.8 % (0-10); NRBC Flagged by Analyzer 0 % (0-5); Neutrophil # 3.23 X10^3/uL (2.7-7.7); Neutrophil % 52.4 % (47-70); Platelet Count 169 K/mm3 (150-450); RBC Distribution Width CV 13.4 % (11.6-14.6); RBC Distribution Width SD 44.1 fl (35.1-43.9); Red Blood Count 4.51 M/mm3 (4.6-6.2); White Blood Count 6.2 K/mm3 (4.4-11.0)
[2022-02-25] MEDS: OLANZapine 5 MG/TAB TAB.RAPDIS 10 MG PO (01:56)
[2022-02-25 01:59] LABS: Anion Gap 5 (5-15); BUN 8 mg/dL (7-18); Calcium,Total 8.3 mg/dL (8.5-10.1); Chloride 118 mmol/L (98-107); Creatinine, Serum 0.66 mg/dL (0.70-1.30); EST Glomerular Filtration Rate 138 mL/min (>60); Est Glom Filt Rate - Afr Amer 167 mL/min (>60); Estimated Creatinine Clearance 145.94 ml/min; Glucose 109 mg/dL (74-106); Potassium 3.4 mmol/L (3.5-5.1); Sodium Level 150 mmol/L (136-145)
--- NOTE | 2022-02-25 02:28 | EX.ED.VIS.PS ---
HPI <Dr. 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 He is insightful that he has been having inez recently and not sleeping for the past 3 or 4 days at all because of this. Lives alone. Somehow it came to police/dispatch/crisis attention that he was having thoughts of self-harm and police were dispatched after they tried to have him speak with crisis over the phone and he hung up on them twice. According to police, he would not elaborate about thoughts of self-harm, he repeatedly stated that he needed help but then does not want to talk to anyone about it. He tells me that he is fine and just wants to go home. He deflects questions about self-harm and continues to simply repeat that he is fine. He says he wants to go to sleep. He admits to drinking alcohol tonight, he does not do this every night. States he has tried Seroquel in the past but it did not help. PFSH <Dr. Omer Brunner MD - Last Filed: 02/25/22 03:18> PFS Medical History Alcohol abuse Anxiety Bipolar disorder Depression History of pancreatitis Smoker Home Medications NK 08/02/20 [History Last Taken Unknown] Allergy/AdvReac Type Severity Reaction Status Date / Time No Known Allergies Allergy Verified 08/01/20 21:35 Surgical History (Updated 02/25/22 @ 00:36 by Dave Owens) History of hernia repair Social History Smoking Status: Current every day smoker tobacco type: cigarettes ROS <Dr. Omer Brunner MD - Last Filed: 02/25/22 03:18> ROS ED Constitutional Constitutional ED: Denies chills or fever(s) Eyes Eyes: Denies change in vision or diplopia ENT ENT ED: Denies rhinorrhea or sore throat Cardiovascular Cardiovascular: Denies chest pain or palpitations Respiratory/Chest Respiratory/Chest: Denies cough or dyspnea Gastrointestinal Gastrointestinal: Denies abdominal pain, diarrhea, nausea or vomiting Genitourinary Genitourinary ED: Denies dysuria or hematuria Musculoskeletal Musculoskeletal: Denies back pain or neck pain Integumentary Denies abscess or rash Neurologic Neurologic: Denies headache(s), paresthesias or weakness Psychiatric Psychiatric: Reports difficulty concentrating, mood swings and suicidal thoughts; Denies hallucinations, homicidal ideation or paranoia EXAM <Dr. Omer Brunner MD - Last Filed: 02/25/22 03:18> Physical Exam Const Vital Signs: 02/25/22 00:30 02/25/22 00:33 02/25/22 01:43 Temperature 97.6 F L Temperature Source Temporal Pulse Rate 111 H 112 H Respiratory Rate 16 16 17 Blood Pressure 146/103 H 146/103 H Blood Pressure Mean 117 117 Pulse Ox 97 96 Oxygen Delivery Method Room Air Room Air 02/25/22 03:47 02/25/22 03:52 02/25/22 07:09 Temperature Temperature Source Pulse Rate 91 Respiratory Rate 15 15 Blood Pressure 119/86 H Blood Pressure Mean 97 Pulse Ox 99 99 Oxygen Delivery Method Room Air Room Air 02/25/22 12:12 02/25/22 13:00 02/25/22 14:00 Temperature Temperature Source Pulse Rate Respiratory Rate 16 18 18 Blood Pressure Blood Pressure Mean Pulse Ox Oxygen Delivery Method 02/25/22 15:00 02/25/22 16:28 Temperature Temperature Source Pulse Rate 81 Respiratory Rate 18 18 Blood Pressure 144/88 H Blood Pressure Mean 106 Pulse Ox 99 Oxygen Delivery Method Room Air Positive well nourished and well developed General Appearance ED: well developed and NAD HEENT Reports moist mucous membranes normocephalic and atraumatic Eyes PERRL and EOMs intact bilaterally General Eye ED: Negative for scleral icterus Neck no lymphadenopathy and supple Resp normal respiratory effort and clear to auscultation bilaterally Cardio no murmurs Rate: regular rate Rhythm: regular rhythm GI non-tender and non-distended Auscultation: normoactive bowel sounds Palpation: soft Back/Spine no CVA tenderness and normal ROM Extremity normal to inspection General Extremety ED: Negative for edema General Extremity: Negative for edema Neuro oriented x3, CN's II-XII intact bilaterally, no sensory deficits noted and gait normal Sensorium / Orientation: alert Motor Exam: strength 5/5 throughout Psych mental status grossly normal, thought process normal, cooperative, speech normal, activity/motor behavior normal and denies homicidal ideation Psych Narrative: Labile but cooperative and redirectable verbally. Intoxicated but cooperative. Mood & Affect: labile affect Thought Content: other When asked about suicidality/suicidal thoughts, patient continues to deflect and will not answer the question Skin Lesions: no lesions Rashes: no rashes <Dr. Milan Finch DO - Last Filed: 02/25/22 16:34> Physical Exam Const Vital Signs: 02/25/22 00:30 02/25/22 00:33 02/25/22 01:43 Temperature 97.6 F L Temperature Source Temporal Pulse Rate 111 H 112 H Respiratory Rate 16 16 17 Blood Pressure 146/103 H 146/103 H Blood Pressure Mean 117 117 Pulse Ox 97 96 Oxygen Delivery Method Room Air Room Air 02/25/22 03:47 02/25/22 03:52 02/25/22 07:09 Temperature Temperature Source Pulse Rate 91 Respiratory Rate 15 15 Blood Pressure 119/86 H Blood Pressure Mean 97 Pulse Ox 99 99 Oxygen Delivery Method Room Air Room Air 02/25/22 12:12 02/25/22 13:00 02/25/22 14:00 Temperature Temperature Source Pulse Rate Respiratory Rate 16 18 18 Blood Pressure Blood Pressure Mean Pulse Ox Oxygen Delivery Method 02/25/22 15:00 02/25/22 16:28 Temperature Temperature Source Pulse Rate 81 Respiratory Rate 18 18 Blood Pressure 144/88 H Blood Pressure Mean 106 Pulse Ox 99 Oxygen Delivery Method Room Air <Dr. Humberto Noguera MD - Last Filed: 02/25/22 18:24> Physical Exam Const Vital Signs: 02/25/22 00:30 02/25/22 00:33 02/25/22 01:43 Temperature 97.6 F L Temperature Source Temporal Pulse Rate 111 H 112 H Respiratory Rate 16 16 17 Blood Pressure 146/103 H 146/103 H Blood Pressure Mean 117 117 Pulse Ox 97 96 Oxygen Delivery Method Room Air Room Air 02/25/22 03:47 02/25/22 03:52 02/25/22 07:09 Temperature Temperature Source Pulse Rate 91 Respiratory Rate 15 15 Blood Pressure 119/86 H Blood Pressure Mean 97 Pulse Ox 99 99 Oxygen Delivery Method Room Air Room Air 02/25/22 12:12 02/25/22 13:00 02/25/22 14:00 Temperature Temperature Source Pulse Rate Respiratory Rate 16 18 18 Blood Pressure Blood Pressure Mean Pulse Ox Oxygen Delivery Method 02/25/22 15:00 02/25/22 16:28 Temperature Temperature Source Pulse Rate 81 Respiratory Rate 18 18 Blood Pressure 144/88 H Blood Pressure Mean 106 Pulse Ox 99 Oxygen Delivery Method Room Air MDM <Dr. Omer Brunner MD - Last Filed: 02/25/22 03:18> [facility] MDM Narrative Medical decision making narrative: I advised patient that he is pink slipped and will need to be observed here until sober for crisis to evaluate him further given that he has been having suicidal thoughts and is manic. He was amenable as long as we try to help him get to sleep, I gave him a Zyprexa Zydis as well as Vistaril, he was unable to sleep but he was relatively cooperative and since he was awake we gave him a liter of LR in addition to an oral dose of potassium and an Ambien. His labs showed mild sodium and chloride elevation likely due to mild dehydration, his alcohol is 373, and otherwise his labs were unremarkable. Therefore after he belen up, he will be medically cleared for crisis evaluation. He will be checked out to the next shift. Lab Data Attestation: I reviewed the patient's lab results. Labs: Laboratory Results - last 24 hr 02/25/22 02/25/22 02/25/22 01:24 01:34 01:34 WBC 6.2 RBC 4.51 L Hgb 14.1 Hct 40.6 MCV 90.0 MCH 31.3 MCHC 34.7 RDW Std Deviation 44.1 H RDW Coeff of Good 13.4 Plt Count 169 MPV 12.3 H Immature Gran % (Auto) 0.300 Neut % (Auto) 52.4 Lymph % (Auto) 36.8 [place] % (Auto) 7.8 Eos % (Auto) 1.9 Baso % (Auto) 0.8 Absolute Neuts (auto) 3.2 Absolute Lymphs (auto) 2.27 Nucleated RBC % 0 Sodium 150 H Potassium 3.4 L Chloride 118 H Carbon Dioxide 27.0 Anion Gap 5 BUN 8 Creatinine 0.66 L Estim Creat Clear Calc 145.94 Est GFR (MDRD) Af Amer 167 Est GFR (MDRD) Non-Af 138 BUN/Creatinine Ratio 12.0 Glucose 109 H Calcium 8.3 L Urine Opiates Screen NEGATIVE Urine Methadone Screen NEGATIVE Ur Barbiturates Screen NEGATIVE Ur Phencyclidine Scrn NEGATIVE Ur Amphetamines Screen NEGATIVE MDMA (Ecstasy) Screen NEGATIVE U Benzodiazepines Scrn NEGATIVE Urine Cocaine Screen NEGATIVE U Cannabinoids Screen NEGATIVE Ur Drug Screen Comment Ethyl Alcohol 02/25/22 02/25/22 02/25/22 01:34 12:00 15:56 WBC RBC Hgb Hct MCV MCH MCHC RDW Std Deviation RDW Coeff of Good Plt Count MPV Immature Gran % (Auto) Neut % (Auto) Lymph % (Auto) [place] % (Auto) Eos % (Auto) Baso % (Auto) Absolute Neuts (auto) Absolute Lymphs (auto) Nucleated RBC % Sodium Potassium Chloride Carbon Dioxide Anion Gap BUN Creatinine Estim Creat Clear Calc Est GFR (MDRD) Af Amer Est GFR (MDRD) Non-Af BUN/Creatinine Ratio Glucose Calcium Urine Opiates Screen Urine Methadone Screen Ur Barbiturates Screen Ur Phencyclidine Scrn Ur Amphetamines Screen MDMA (Ecstasy) Screen U Benzodiazepines Scrn Urine Cocaine Screen U Cannabinoids Screen Ur Drug Screen Comment Ethyl Alcohol 373.0 H* 179.0 69.0 <Dr. Milan Finch, DO - Last Filed: 02/25/22 16:34> MDM MDM Narrative Medical decision making narrative: Care of the patient was turned over to me. Patient's repeat blood alcohol level was obtained and was still elevated at 179. Patient was calm and cooperative during my shift. Repeat blood alcohol level was ordered and is pending. Care of the patient will be signed out to the oncoming physician pending repeat alcohol level and psychiatric evaluation by crisis once his alcohol level is less than 100. Lab Data Attestation: I reviewed the patient's lab results. Labs: Laboratory Results - last 24 hr 02/25/22 02/25/22 02/25/22 01:24 01:34 01:34 WBC 6.2 RBC 4.51 L Hgb 14.1 Hct 40.6 MCV 90.0 MCH 31.3 MCHC 34.7 RDW Std Deviation 44.1 H RDW Coeff of Good 13.4 Plt Count 169 MPV 12.3 H Immature Gran % (Auto) 0.300 Neut % (Auto) 52.4 Lymph % (Auto) 36.8 [place] % (Auto) 7.8 Eos % (Auto) 1.9 Baso % (Auto) 0.8 Absolute Neuts (auto) 3.2 Absolute Lymphs (auto) 2.27 Nucleated RBC % 0 Sodium 150 H Potassium 3.4 L Chloride 118 H Carbon Dioxide 27.0 Anion Gap 5 BUN 8 Creatinine 0.66 L Estim Creat Clear Calc 145.94 Est GFR (MDRD) Af Amer 167 Est GFR (MDRD) Non-Af 138 BUN/Creatinine Ratio 12.0 Glucose 109 H Calcium 8.3 L Urine Opiates Screen NEGATIVE Urine Methadone Screen NEGATIVE Ur Barbiturates Screen NEGATIVE Ur Phencyclidine Scrn NEGATIVE Ur Amphetamines Screen NEGATIVE MDMA (Ecstasy) Screen NEGATIVE U Benzodiazepines Scrn NEGATIVE Urine Cocaine Screen NEGATIVE U Cannabinoids Screen NEGATIVE Ur Drug Screen Comment Ethyl Alcohol 02/25/22 02/25/22 02/25/22 01:34 12:00 15:56 WBC RBC Hgb Hct MCV MCH MCHC RDW Std Deviation RDW Coeff of Good Plt Count MPV Immature Gran % (Auto) Neut % (Auto) Lymph % (Auto) [place] % (Auto) Eos % (Auto) Baso % (Auto) Absolute Neuts (auto) Absolute Lymphs (auto) Nucleated RBC % Sodium Potassium Chloride Carbon Dioxide Anion Gap BUN Creatinine Estim Creat Clear Calc Est GFR (MDRD) Af Amer Est GFR (MDRD) Non-Af BUN/Creatinine Ratio Glucose Calcium Urine Opiates Screen Urine Methadone Screen Ur Barbiturates Screen Ur Phencyclidine Scrn Ur Amphetamines Screen MDMA (Ecstasy) Screen U Benzodiazepines Scrn Urine Cocaine Screen U Cannabinoids Screen Ur Drug Screen Comment Ethyl Alcohol 373.0 H* 179.0 69.0 <Dr. Humberto Noguera MD - Last Filed: 02/25/22 18:24> [facility] MDM Narrative Medical decision making narrative: Poornima-patient was turned over to me. He is now sober, he was seen by crisis and cleared from the psychiatric standpoint I went back to talk to him at this time he has no suicidal ideations, he is denying any thoughts of hurting himself he wants to go home he wants to start looking for a job tomorrow he tells me is not in a drink tonight. I believe it is reasonable to discharge him. Lab Data Labs: Laboratory Results - last 24 hr 02/25/22 02/25/22 02/25/22 01:24 01:34 01:34 WBC 6.2 RBC 4.51 L Hgb 14.1 Hct 40.6 MCV 90.0 MCH 31.3 MCHC 34.7 RDW Std Deviation 44.1 H RDW Coeff of Good 13.4 Plt Count 169 MPV 12.3 H Immature Gran % (Auto) 0.300 Neut % (Auto) 52.4 Lymph % (Auto) 36.8 [place] % (Auto) 7.8 Eos % (Auto) 1.9 Baso % (Auto) 0.8 Absolute Neuts (auto) 3.2 Absolute Lymphs (auto) 2.27 Nucleated RBC % 0 Sodium 150 H Potassium 3.4 L Chloride 118 H Carbon Dioxide 27.0 Anion Gap 5 BUN 8 Creatinine 0.66 L Estim Creat Clear Calc 145.94 Est GFR (MDRD) Af Amer 167 Est GFR (MDRD) Non-Af 138 BUN/Creatinine Ratio 12.0 Glucose 109 H Calcium 8.3 L Urine Opiates Screen NEGATIVE Urine Methadone Screen NEGATIVE Ur Barbiturates Screen NEGATIVE Ur Phencyclidine Scrn NEGATIVE Ur Amphetamines Screen NEGATIVE MDMA (Ecstasy) Screen NEGATIVE U Benzodiazepines Scrn NEGATIVE Urine Cocaine Screen NEGATIVE U Cannabinoids Screen NEGATIVE Ur Drug Screen Comment Ethyl Alcohol 02/25/22 02/25/22 02/25/22 01:34 12:00 15:56 WBC RBC Hgb Hct MCV MCH MCHC RDW Std Deviation RDW Coeff of Good Plt Count MPV Immature Gran % (Auto) Neut % (Auto) Lymph % (Auto) [place] % (Auto) Eos % (Auto) Baso % (Auto) Absolute Neuts (auto) Absolute Lymphs (auto) Nucleated RBC % Sodium Potassium Chloride Carbon Dioxide Anion Gap BUN Creatinine Estim Creat Clear Calc Est GFR (MDRD) Af Amer Est GFR (MDRD) Non-Af BUN/Creatinine Ratio Glucose Calcium Urine Opiates Screen Urine Methadone Screen Ur Barbiturates Screen Ur Phencyclidine Scrn Ur Amphetamines Screen MDMA (Ecstasy) Screen U Benzodiazepines Scrn Urine Cocaine Screen U Cannabinoids Screen Ur Drug Screen Comment Ethyl Alcohol 373.0 H* 179.0 69.0 Discharge Plan Triage Chief Complaint: Mental Health ED Provider: Omer Brunner Dx/Rx/DC Orders Clinical Impression: Inez, Suicidal thoughts, Bipolar disorder, Noncompliance with medications, Alcohol intoxication Instructions: ED Depression, ED Alcohol Intoxication Prescriptions: No Action NK RF: 0 Primary Care Provider: Care Physician,No Primary Referrals: Care Physician,No Primary [Primary Care Provider] - 2 Days Disposition Disposition: Home, Self Care
[2022-02-25] MEDS: Zolpidem Tartrate 5 MG Tablet PO (03:39)
[2022-02-25] MEDS: Potassium Chloride Oral Tablet 20 MEQ PO (03:42)
[2022-02-25] MEDS: Lactated Ringers 1,000 ML 999 ML IV (03:46)
--- NOTE | 2022-02-25 16:57 | EKG12_ITS ---
Test Reason : MHC Blood Pressure : / mmHG Vent. Rate : 085 BPM Atrial Rate : 085 BPM P-R Int : 144 ms QRS Dur : 086 ms QT Int : 348 ms P-R-T Axes : 066 074 065 degrees QTc Int : 414 ms Normal sinus rhythm Normal ECG Confirmed by CHARLEY ANTON, SID ([id number]), publications editor SADIE SKINNER ([id number]) on 02/26/2022 11:45:07 AM Referred By: OPAL Confirmed By:SID WHITEHEAD MD
== END 2022-02-25 18:35 | disposition home or self-care (01) ==
PROVIDERS: Emergency Medicine; Emergency Provider Emergency Medicine; Visit Provider Emergency Medicine
DX: F10.129 Alcohol abuse with intoxication, unspecified (principal); F31.9 Bipolar disorder, unspecified; Z91.14 Patient's other noncompliance with medication regimen; R45.851 Suicidal ideations; F17.210 Nicotine dependence, cigarettes, uncomplicated; Y90.9 Presence of alcohol in blood, level not specified
CPT/HCPCS: 80048; 80307; 82077; 85025; 87811; 93005; 96360; 99285; J7120; A4216